=== PATIENT | female | born 1980 | race Caucasian/White ===

== ENCOUNTER 2019-03-30 10:26 | Outpatient (REF) | payer OTHER, SELFPAY ==
[2019-03-30 20:11] LABS: ALT 59 U/L (12-78); AST 30 U/L (15-37); Albumin 3.6 g/dL (3.4-5.0); Alkaline Phosphatase 112 U/L (46-116); BUN 14 mg/dL (7-18); Bilirubin, Total 0.4 mg/dL (0.2-1.0); CREATININE 0.54 mg/dL (0.55-1.02); Calcium 9.1 mg/dL (8.5-10.1); Calculated LDL 208 mg/dL; Chloride 99 mmol/L (98-107); Cholesterol 292 mg/dL (50-200); Glucose 356 mg/dL (70-100); HDL Cholesterol 27 mg/dL (40-60); Sodium 134 mmol/L (136-145); TSH 1.65 uIU/mL (0.36-3.74); Triglyceride 287 mg/dL (30-150)
== END 2019-03-30 10:46 ==
LOC: NCHCN 10:26
PROVIDERS: PCP Nurse Practitioner Family; Visit Provider Nurse Practitioner Family
DX: E11.9 Type 2 diabetes mellitus without complications (principal); Z13.220 Encounter for screening for lipoid disorders
CPT/HCPCS: 80053; 80061; 83721; 84443

== ENCOUNTER 2019-11-07 10:27 | Outpatient (REF) | payer OTHER, SELFPAY ==
[2019-11-07 20:40] LABS: Hemoglobin A1C 7.3 % (3.8-5.6)
[2019-11-07 20:42] LABS: ALT 27 U/L (14-59); AST 12 U/L (15-37); Albumin 3.7 g/dL (3.4-5.0); Alkaline Phosphatase 79 U/L (46-116); Anion Gap 9.9 mmol/L (3-11); BUN 16 mg/dL (7-18); Bilirubin, Total 0.2 mg/dL (0.2-1.0); CO2 24.1 mmol/L (21.0-32.0); Calculated LDL 115 mg/dL (<100); Chloride 103 mmol/L (98-107); Cholesterol 188 mg/dL (<200); Glucose 142 mg/dL (74-106); HDL Cholesterol 39 mg/dL (40-60); Potassium 4.2 mmol/L (3.5-5.1); Sodium 137 mmol/L (136-145); Total Protein 7.1 g/dL (6.4-8.2); Triglyceride 173 mg/dL (<150)
== END 2019-11-07 10:47 ==
LOC: NCHCN 10:27
PROVIDERS: PCP Nurse Practitioner Family; Visit Provider Nurse Practitioner Family
DX: E11.9 Type 2 diabetes mellitus without complications (principal); Z13.220 Encounter for screening for lipoid disorders
CPT/HCPCS: 80053; 80061; 83036

== ENCOUNTER 2020-12-03 09:01 | Outpatient (REF) | payer OTHER, SELFPAY ==
[2020-12-03 16:19] LABS: ALT 44 U/L (14-59); AST 19 U/L (15-37); Alkaline Phosphatase 88 U/L (46-116); Anion Gap 13.4 mmol/L (3-11); BUN 16 mg/dL (7-18); Bilirubin, Total 0.2 mg/dL (0.2-1.0); CO2 23.6 mmol/L (21.0-32.0); CREATININE 0.6 mg/dL (0.55-1.02); Calculated LDL 106 mg/dL (<100); Chloride 99 mmol/L (98-107); Cholesterol 193 mg/dL (<200); Glucose 159 mg/dL (74-106); HDL Cholesterol 38 mg/dL (40-60); Potassium 4.5 mmol/L (3.5-5.1); Sodium 136 mmol/L (136-145); Total Protein 7.5 g/dL (6.4-8.2); Triglyceride 249 mg/dL (<150)
[2020-12-03 18:22] LABS: COMMENT (LAB VIEW ONLY) 96.77 mg/dL; Microalb ug/mg Crea 59.6 ug/mg Cr
== END 2020-12-03 09:02 | disposition home or self-care (01) ==
LOC: NCHCN 09:01
PROVIDERS: PCP Nurse Practitioner Family; Visit Provider Nurse Practitioner Family
DX: E11.9 Type 2 diabetes mellitus without complications (principal); E78.5 Hyperlipidemia, unspecified
CPT/HCPCS: 80053; 80061; 82043; 82570

== ENCOUNTER 2021-02-11 16:38 | Outpatient (REF) | payer OTHER, SELFPAY ==
[2021-02-11 20:35] LABS: Hemoglobin A1C 7.9 % (<5.7)
== END 2021-02-11 16:39 | disposition home or self-care (01) ==
LOC: NCHCN 16:38
PROVIDERS: PCP Nurse Practitioner Family; Visit Provider Nurse Practitioner Family
DX: E11.9 Type 2 diabetes mellitus without complications (principal)
CPT/HCPCS: 83036

== ENCOUNTER 2021-05-28 08:29 | Outpatient (REF) | payer OTHER, SELFPAY ==
[2021-05-28 20:03] LABS: ALT 33 U/L (14-59); AST 13 U/L (15-37); Albumin 3.9 g/dL (3.4-5.0); Alkaline Phosphatase 89 U/L (46-116); Anion Gap 12.1 mmol/L (3-11); BUN 12 mg/dL (7-18); Bilirubin, Total 0.3 mg/dL (0.2-1.0); CO2 25.9 mmol/L (21.0-32.0); CREATININE 0.5 mg/dL (0.55-1.02); Calcium 9.2 mg/dL (8.5-10.1); Calculated LDL 109 mg/dL (<100); Chloride 100 mmol/L (98-107); Cholesterol 177 mg/dL (<200); Glucose 129 mg/dL (74-106); HDL Cholesterol 37 mg/dL (40-60); Potassium 4.2 mmol/L (3.5-5.1); Sodium 138 mmol/L (136-145); Total Protein 7.4 g/dL (6.4-8.2); Triglyceride 159 mg/dL (<150)
== END 2021-05-28 08:30 | disposition home or self-care (01) ==
LOC: NCHCN 08:29
PROVIDERS: PCP Nurse Practitioner Family; Visit Provider Nurse Practitioner Family
DX: E11.9 Type 2 diabetes mellitus without complications (principal); R80.9 Proteinuria, unspecified; E78.5 Hyperlipidemia, unspecified
CPT/HCPCS: 80053; 80061

== ENCOUNTER 2021-10-13 14:57 | Outpatient (REF) | payer SELFPAY ==
[2021-10-13 21:23] LABS: Hemoglobin A1C 6.8 % (<5.7)
[2021-10-13 21:36] LABS: ALT 19 U/L (14-59); AST 10 U/L (15-37); Albumin 3.6 g/dL (3.4-5.0); Alkaline Phosphatase 77 U/L (46-116); Anion Gap 11.9 mmol/L (3-11); BUN 12 mg/dL (7-18); Bilirubin, Total 0.2 mg/dL (0.2-1.0); CO2 22.1 mmol/L (21.0-32.0); CREATININE 0.6 mg/dL (0.55-1.02); Calcium 8.9 mg/dL (8.5-10.1); Calculated LDL 120 mg/dL (<100); Chloride 103 mmol/L (98-107); Cholesterol 186 mg/dL (<200); Glucose 138 mg/dL (74-106); HDL Cholesterol 38 mg/dL (40-60); Potassium 4.5 mmol/L (3.5-5.1); Sodium 137 mmol/L (136-145); Triglyceride 141 mg/dL (<150)
== END 2021-10-13 14:58 | disposition home or self-care (01) ==
LOC: NCHCN 14:57
PROVIDERS: PCP Nurse Practitioner Family; Visit Provider Nurse Practitioner Family
DX: E11.9 Type 2 diabetes mellitus without complications (principal); E78.5 Hyperlipidemia, unspecified
CPT/HCPCS: 80053; 80061; 83036

== ENCOUNTER 2022-04-13 14:53 | Outpatient (REF) | payer OTHER, SELFPAY ==
[2022-04-13 20:21] LABS: BUN 9 mg/dL (7-18); CREATININE 0.5 mg/dL (0.55-1.02); Calcium 9.9 mg/dL (8.5-10.1); Chloride 100 mmol/L (98-107); Glucose 138 mg/dL (74-106); Potassium 4.2 mmol/L (3.5-5.1); Sodium 137 mmol/L (136-145)
== END 2022-04-13 14:54 | disposition home or self-care (01) ==
LOC: NCHCN 14:53
PROVIDERS: PCP Nurse Practitioner Family; Visit Provider Nurse Practitioner Family
DX: E11.9 Type 2 diabetes mellitus without complications (principal); E78.5 Hyperlipidemia, unspecified
CPT/HCPCS: 80048

== ENCOUNTER 2023-01-26 12:57 | Outpatient (REF) | payer OTHER, SELFPAY ==
[2023-01-26 19:57] LABS: ALT 24 U/L (14-59); AST 15 U/L (15-37); Albumin 3.8 g/dL (3.4-5.0); Alkaline Phosphatase 78 U/L (46-116); Anion Gap 9.3 mmol/L (3-11); BUN 13 mg/dL (7-18); Bilirubin, Total 0.2 mg/dL (0.2-1.0); CO2 23.7 mmol/L (21.0-32.0); CREATININE 0.6 mg/dL (0.55-1.02); Calcium 9.2 mg/dL (8.5-10.1); Calculated LDL 105 mg/dL (<100); Chloride 103 mmol/L (98-107); Cholesterol 169 mg/dL (<200); Estimated GFR 114.86 (mL/min/1.73m2); Glucose 176 mg/dL (74-106); HDL Cholesterol 40 mg/dL (40-60); Potassium 4.2 mmol/L (3.5-5.1); Sodium 136 mmol/L (136-145); Total Protein 7.7 g/dL (6.4-8.2); Triglyceride 121 mg/dL (<150)
== END 2023-01-26 12:58 | disposition home or self-care (01) ==
LOC: NCHCN 12:57
PROVIDERS: PCP Nurse Practitioner Family; Visit Provider Nurse Practitioner Family
DX: E11.9 Type 2 diabetes mellitus without complications (principal); E78.5 Hyperlipidemia, unspecified
CPT/HCPCS: 80053; 80061

== ENCOUNTER 2023-10-17 10:01 | Outpatient (REF) | payer BC, SELFPAY ==
[2023-10-17 19:48] LABS: Hemoglobin A1C 7.9 % (<5.7)
[2023-10-17 19:54] LABS: Anion Gap 11.3 mmol/L (3-11); BUN 17 mg/dL (7-18); CO2 24.7 mmol/L (21.0-32.0); CREATININE 0.8 mg/dL (0.55-1.02); Calcium 9.1 mg/dL (8.5-10.1); Chloride 101 mmol/L (98-107); Glucose 196 mg/dL (74-106); Potassium 4.3 mmol/L (3.5-5.1); Sodium 137 mmol/L (136-145)
== END 2023-10-17 10:02 | disposition home or self-care (01) ==
LOC: NCHCN 10:01
PROVIDERS: PCP Nurse Practitioner Family; Referring Provider Nurse Practitioner Family; Visit Provider Nurse Practitioner Family
DX: E11.9 Type 2 diabetes mellitus without complications (principal)
CPT/HCPCS: 80048; 83036

== ENCOUNTER 2024-07-24 08:54 | Outpatient (REF) | payer BC, SELFPAY ==
[2024-07-24 19:24] LABS: ALT 22 U/L (14-59); AST 15 U/L (15-37); Albumin 3.9 g/dL (3.4-5.0); Alkaline Phosphatase 84 U/L (46-116); Anion Gap 8.5 mmol/L (3-11); BUN 14 mg/dL (7-18); Bilirubin, Total 0.19 mg/dL (0.2-1.0); CO2 24.5 mmol/L (21.0-32.0); CREATININE 0.9 mg/dL (0.55-1.02); Calcium 9.3 mg/dL (8.5-10.1); Calculated LDL 109 mg/dL (<100); Chloride 101 mmol/L (98-107); Cholesterol 172 mg/dL (<200); Estimated GFR 80.84 (mL/min/1.73m2); Glucose 175 mg/dL (74-106); HDL Cholesterol 39 mg/dL (40-60); Potassium 4.2 mmol/L (3.5-5.1); Sodium 134 mmol/L (136-145); Total Protein 7.5 g/dL (6.4-8.2); Triglyceride 121 mg/dL (<150)
== END 2024-07-24 08:55 | disposition home or self-care (01) ==
LOC: NCHCN 08:54
PROVIDERS: PCP Nurse Practitioner Family; Visit Provider Nurse Practitioner Family
DX: E11.9 Type 2 diabetes mellitus without complications (principal); E78.5 Hyperlipidemia, unspecified
CPT/HCPCS: 80053; 80061

== ENCOUNTER 2025-01-30 11:56 | Outpatient (REF) | payer BC, SELFPAY ==
[2025-01-30 19:36] LABS: ALT 21 U/L (14-59); AST 20 U/L (15-37); Alkaline Phosphatase 87 U/L (46-116); Anion Gap 9.8 mmol/L (3-11); BUN 15 mg/dL (7-18); Bilirubin, Total 0.3 mg/dL (0.2-1.0); CO2 24.2 mmol/L (21.0-32.0); CREATININE 0.8 mg/dL (0.55-1.02); Calcium 9.4 mg/dL (8.5-10.1); Chloride 100 mmol/L (98-107); Estimated GFR 92.54 (mL/min/1.73m2); Glucose 116 mg/dL (74-106); Potassium 4.3 mmol/L (3.5-5.1); Sodium 134 mmol/L (136-145); Total Protein 7.6 g/dL (6.4-8.2)
== END 2025-01-30 11:57 | disposition home or self-care (01) ==
LOC: NCHCN 11:56
PROVIDERS: PCP Nurse Practitioner Family; Visit Provider Nurse Practitioner Family
DX: E11.9 Type 2 diabetes mellitus without complications (principal)
CPT/HCPCS: 80053

== ENCOUNTER 2025-05-21 00:59 | Outpatient (CLI) | payer BC, SELFPAY ==
--- NOTE | 2025-05-21 06:00 | DI.US_ITS ---
Exam(s) US NEEDLE LOCAL OTHER WO RAD EXAM: US NEEDLE LOCAL OTHER WO RAD CLINICAL HISTORY: thyroid nodule, left side TR3,ULTRASOUND GUIDED BX,E04.1. COMPARISON: US US SOFT TISSUE HEAD/NECK from 02/04/2025 TECHNIQUE: Ultrasound was provided for Dr. Henry for guidance with performing left thyroid FNA. . FINDINGS: Please see procedure note for details DATA REPOSITORY:
--- NOTE | 2025-05-21 12:20 | PAPNONF_PTH ---
PATIENT: Jennifer Albert LOC: [facility] U#:[id number] AGE/SX: 45/F ROOM: RE05/21/[address]: Izzy Camara : 1980 BED: DIS: 05/21/2025 SPEC #: [id number] RECD: 05/21/25 13:02 STATUS: DEVANTE [place] #: [id number] RAINE: 05/21/25 12:[address]: Izzy Camara DEPT: [facility] Cytology RECD BY: Sushila Cardenas ENTERED: 05/21/25 13:02 SP TYPE: MISSY HAINES DR: Anabela Mckeon Tissues: 1 - BODY FLUID CYTO-FINE NEEDLE [facility] Procedures: BODY FLUID CYTO-FINE NEEDLE [facility] Comments: [id number] (PATH FNA CONSULT) (REFRIGERATED)
--- NOTE | 2025-05-21 12:45 | W.PROCNOTE ---
Date of service: 05/21/25 Time of Service: 12:46 Procedure Note Date of procedure: 05/21/25 Procedure: Ultrasound-guided FNA, left thyroid nodule, pathology present Surgeon/Proceduralist/Physician: Girma Henry Procedure Diagnosis: Left thyroid nodule meeting criteria for biopsy Procedure Indications: Patient has a left-sided thyroid nodule meeting criteria for biopsy. Options were explained to the patient regarding further management. She elected undergo the above procedure. Risks including bleeding, infection, need for further diagnostic studies or treatment were discussed at length. Written consent was obtained. The below was then performed. Procedure Description: The patient was positioned in a supine position with her neck slightly extended. She was prepped and draped in appropriate fashion and ultrasound used to localize the left sided thyroid nodule. 2% lidocaine with 1/100,000 epinephrine was injected over the skin and subcutaneous tissues lying medial to the thyroid nodule and then a 25-gauge needle was passed into the thyroid nodule and moved [id number]-zhr-gpoil repeatedly to collect a sample of the nodule. 2 passes were needed to hit cellular adequacy. Once been accomplished, 2 additional passes were made for potential Afirma testing. All passes were done under ultrasound guidance. The patient was then allowed to sit, stand, and ambulate after a sterile dressing was applied to the surgical site and hemostasis had been ensured. She will call if she does not hear from me within 1 week. She will avoid any strenuous activities today. She will call with any signs of infection or any concerns. She will remove the bandage in an hour. She may use Tylenol or ibuprofen for any discomfort. She had no further questions. She is comfortable with the plan.
== END 2025-05-21 01:19 ==
LOC: DI 00:59
PROVIDERS: PCP Nurse Practitioner Family; Visit Provider Registered Nurse Maternal Newborn
DX: E04.1 Nontoxic single thyroid nodule (principal)
CPT/HCPCS: 10005; 76942; 88104